=== PATIENT | male | born 1965 | race Caucasian/White ===

== ENCOUNTER 2019-10-13 13:09 | Emergency (ER) | payer MEDICAID, SELFPAY ==
[2019-10-13 13:35] VITALS: BP 130/86; PULSE 68; RESP 19; TEMP 36.6; O2SAT 97; BMI 19.5
--- NOTE | 2019-10-13 14:03 | HMH.EDUTC ---
[facility] [place] Disposition Clinical Impression: Encounter for laboratory testing for COVID-19 virus Disposition: Home, Self-Care Condition on Discharge: Good Instructions: Acetaminophen (Alternative Therapy), Cough, Preventing the Spread of Coronavirus Discharge Instructions Additional Instructions: Go home and Quarantine as you was advised You was given handout for instructions for Quarantine for COVID 19 make sure to follow those instructions strictly to help prevent spread of COVID Return if needed Straight to ER If any life threatening symptoms Make sure to Call back to the [facility] tomorrow or Friday for your test results Referrals: PCP,No [Primary Care Provider] - As needed Forms: Work/School Release Time of Disposition: 14:13 Medical Decision Making - Haroldo Inquiry Pt receiving controlled substance: No Haroldo was queried for this patient: No Vital Signs: 10/13/19 13:35 10/13/19 14:15 Temperature 97.9 F 97.9 F Temperature Source Oral Pulse Rate 68 Pulse Rate [Right Brachial] 68 Respiratory Rate 19 19 Blood Pressure 130/86 Blood Pressure [Right Arm] 130/86 Blood Pressure Mean [Right Arm] 100 Blood Pressure Source [Right Arm] Automatic Cuff Blood Pressure Position [Right Arm] Sitting 02 Sat by Pulse Oximetry 97 Oxygen Delivery Method Room Air Room Air Orders (Tests/Meds): ORDERS Category Date Time Status SARS-CoV-2, GLENDY Stat Lab 10/13/19 13:40 Received [facility] [place] HPI - General Stated complaint: contact with covid pt Time Seen by Provider: 10/13/19 14:03 Mode of Arrival: Ambulatory Source of Information: Patient Limitations: No Limitations Description of Symptoms (Recalled from Triage Doc. by RN): pt. here for covid 19 test due to exposure from girlfriend, states hes had a runny nose and cough for 2 days HEENT Symptoms (Recalled from RN notes): No Resp Symptoms (Recalled from RN notes): Yes Skin Symptoms (Recalled from RN notes): No MS Symptoms (Recalled from RN notes): No Functional Status (Recalled from RN notes): none - History of Present Illness Provider Complaint: Patient states that his girlfriend was tested for COVID 19 and got her test results back yesterday and they was positive States that he has been having runny nose and cough and thought it was allergies but since her positive result he wanted to get tested - Related Data Home Medications Medication Instructions Recorded Confirmed No Known Home Medications 10/13/19 10/13/19 Allergies Allergy/AdvReac Type Severity Reaction Status Date / Time No Known Allergies Allergy Verified 10/13/19 13:38 - Worker's Comp Is this a Worker's Comp case?: No [facility] History - Hepatitis A Screen Drug use history?: No High risk sexual behaviors?: No History of sexually transmitted infection?: No Currently employed?: No Childcare worker?: No Do you have indoor plumbing?: Yes Do you have electricity?: Yes Attestation statement:: This patient has been screened for Hepatitis A risk factors. I have reviewed the patient's past medical history: Yes Medical History: Denies:: Cancer, Diabetes Mellitus Type 1, Diabetes Mellitus Type 2, Internal Pacemaker, MRSA Other Surgeries: No: Pacemaker Amputation: No Fractures: No - Social History Smoking Status: Current every day smoker Tobacco Type: smokeless tobacco # Packs/Day (cigarettes): 0 Alcohol Intake: never Occupational Status: employed ROS Obtained: Yes All systems reviewed & no additional complaints, Yes Systems reviewed as appropriate & no additional complaints - Constitutional Constitutional: Reports system reviewed and no additional complaints, except as docu - ENT Ears, Nose, Mouth, and Throat: Reports nasal congestion, Reports nasal discharge - Cardiovascular Cardiovascular: Reports system reviewed and no additional complaints, except as docu - Respiratory Respiratory: No chest congestion, Yes cough, No dyspnea - Gastrointestinal Gastrointestingal: Reports:
[2019-10-13 14:15] VITALS: BP 130/86; PULSE 68; RESP 19; TEMP 36.6; O2SAT 97
[2019-10-14 14:43] LABS: Covid-19 Nasal PCR Sendout Lex Not Detected
== END 2019-10-13 14:15 | disposition home or self-care (01) ==
PROVIDERS: Emergency Provider Nurse Practitioner
DX: Z20.828 Contact with and (suspected) exposure to other viral communicable diseases (principal); F17.210 Nicotine dependence, cigarettes, uncomplicated
CPT/HCPCS: 99201; U0004